=== PATIENT | female | born 1990 | race Two or more races ===

== ENCOUNTER → 2021-12-03 | Emergency (ER) | payer OTHER ==
[~2021-12-03] VITALS: Ht 154.9 cm; Wt 114.8 kg
== END | disposition home or self-care (01) ==
LOC: ER 16:35
DX: N92.3 Ovulation bleeding (principal)

== ENCOUNTER 2022-03-15 16:07 | Emergency (ER) | payer OTHER ==
[~2022-03-15] VITALS: Ht 160 cm; Wt 115.2 kg
== END 2022-03-15 21:20 | disposition home or self-care (01) ==
LOC: ER 16:07
DX: N92.1 Excessive and frequent menstruation with irregular cycle (principal)